=== PATIENT | male | born 1945 | race Caucasian/White ===

== ENCOUNTER 2016-06-23 16:45 | Inpatient (IN) | payer MEDICARE ==
[~2016-06-23] VITALS: Ht 182.9 cm; Wt 122.9 kg
[~2016-06-23 16:45] MED LIST: BAYER CHEWABLE81 MG PO; BETAPACE 80 MG80 MG PO; BRILINTA90 MG PO; CATAPRES0.2 MG PO; FLOMAX0.4 MG PO; GLUCOPHAGE500 MG PO; HYDROCODON-ACE1 EAC7 PO; HYDROCODONE-APA1 TAB PO; IPRAT-ALBUT 0.5-3 ML UPD; KLOR-CON 1010 MEQ PO; LASIX40 MG PO; LEVAQUIN500 MG PO; LYRICA75 MG PO; MIRALAX17 GM PO; NORVASC10 MG PO; PHENERGAN25 M1 PO; PLAVIX75 MG PO; PREDNISONE10 MG PO; PRINIVIL20 MG PO; PROTONIX40 MG PO; ULTRAM50 MG PO
--- NOTE | 2016-06-23 17:32 | NUR ---
22G IV STARTED TO LEFT FA WITH TWO STICKS, IV FLUIDS STARTED INFUSING, SCD;S ON BILAT, O2 SAT AT 2L. ZOFRAN GIVEN FOR C/O OF NAUSEA. PT DENIES ANY OTHER NEEDS AT THIS TIME. CALL LIGHT IN REACH, NAD NOTED, WILL CONTINUE TO MONITOR.
[2016-06-23 17:56] LABS: BASOPHILS 0.3 % (0.0-2.0); EOSINOPHILS 4.9 % (0-7); HEMATOCRIT 34.7 % (42.0-54.0); HEMOGLOBIN 11.9 g/dL (13.5-17.5); IMMATURE GRANULOCYTES 0.1 % (0-5); LYMPHOCYTES 27.7 % (15-50); MCH 28.7 pg (26.0-34.0); MCHC 34.3 g/dL (31.0-37.0); MCV 83.8 fL (80.0-100.0); MEAN PLATELET VOLUME 9.8 fL (7.4-10.4); MONOCYTES 16.8 % (2-11); NEUTROPHILS 50.2 % (40-80); PLATELET COUNT 228 10x3/uL (130-400); RBC 4.14 10x6/uL (4.20-6.10); RDW 13.1 % (11.5-14.5); WBC 7.2 10x3/uL (4.8-10.8)
[2016-06-23 18:00] VITALS: BP 127/77; BMI 36.8
[2016-06-23 18:09] VITALS: BP 127/77
[2016-06-23 18:28] LABS: ALBUMIN 3.9 g/dL (3.4-5.0); BILIRUBIN - TOTAL 1.36 mg/dL (0.2-1.3); CALCIUM 9.6 mg/dL (8.5-10.1); CREATININE - SERUM 1.4 mg/dL (0.6-1.3); POTASSIUM - SERUM 3.2 mmol/L (3.5-5.1); PROTEIN - SERUM 7.6 g/dL (6.4-8.2)
[2016-06-23 18:35] LABS: CARBON DIOXIDE 42.2 mmol/L (21.0-32.0)
[2016-06-23 19:45] VITALS: BP 122/66
[2016-06-24 02:05] VITALS: BP 120/71
--- NOTE | 2016-06-24 02:20 | NUR ---
LYING IN BED WITH CALL LIGHT IN REACH. WILL CONTINUE WITH PLAN OF CARE.
[2016-06-24 05:19] VITALS: BP 124/76
[2016-06-24 05:37] LABS: BASOPHILS 0.2 % (0.0-2.0); HEMATOCRIT 33.3 % (42.0-54.0); HEMOGLOBIN 11.7 g/dL (13.5-17.5); LYMPHOCYTES 28.6 % (15-50); MCH 29.5 pg (26.0-34.0); MCHC 35.1 g/dL (31.0-37.0); MCV 84.1 fL (80.0-100.0); MEAN PLATELET VOLUME 10.2 fL (7.4-10.4); MONOCYTES 12.5 % (2-11); NEUTROPHILS 54.7 % (40-80); PLATELET COUNT 210 10x3/uL (130-400); RBC 3.96 10x6/uL (4.20-6.10); WBC 5.5 10x3/uL (4.8-10.8)
[2016-06-24 06:18] LABS: ALBUMIN 3.5 g/dL (3.4-5.0); ANION GAP 5.5 mmol/L (8-16); BILIRUBIN - TOTAL 1.15 mg/dL (0.2-1.3); CALCIUM 9.5 mg/dL (8.5-10.1); CARBON DIOXIDE 39.8 mmol/L (21.0-32.0); CREATININE - SERUM 1.2 mg/dL (0.6-1.3); POTASSIUM - SERUM 3.3 mmol/L (3.5-5.1); PROTEIN - SERUM 7.4 g/dL (6.4-8.2)
--- NOTE | 2016-06-24 06:54 | NUR ---
RECEIVED REPORT FROM COOK HELPER FRUIT NURSE, SLOAN CURRIE. PT IN BED, STATES HE IS NOT FEELING WELL THIS AM. CALL LIGHT IN REACH, SCD'S ON BILAT, NAD NOTED, PT DENIES ANY NEEDS AT THIS TIME. WILL CONTINUE TO MONITOR.
[2016-06-24 08:50] VITALS: BP 156/46
--- NOTE | 2016-06-24 08:51 | NUR ---
ADMINISTERED MORNING MEDICATIONS, PT IN BED, DENIES ANY NEEDS AT THIS TIME. CALL LIGHT IN REACH, NAD NOTED, WILL CONTINUE TO MONITOR.
--- NOTE | 2016-06-24 09:44 | NUR ---
ADMINSITERED 4MG OF ZOFRAN FOR C/O OF NUASEA, PT STATES THAT HE ALSO WANTS SOMETHING TO HELP HIM SLEEP AT NIGHT. WILL CALL DR. DIA.
[2016-06-24 10:49] VITALS: Ht 182.9 cm; Wt 122.9 kg
[2016-06-24 12:27] VITALS: BP 120/68
--- NOTE | 2016-06-24 16:17 | NUR ---
Rehab Prescreening Consult recieved and the patient was visited. He meets criteria for IRF and agrees to participate in the program so he can return home and be as independent as possible. Called [facility] and spoke to Leanna mart preauthorization is not required for inpatient rehab. Ref # [id number]. He will be accepted tomorrow if the physician agrees. The [facility] has been made aware. Tiara Staples RN Clinical Liaison, Rehab
[2016-06-24 16:28] VITALS: BP 113/61
--- NOTE | 2016-06-24 17:49 | NUR ---
Patient Name: ANUP REZA Admission Status: Urgent Accout number: [id number] Admission Date: 06-23-2016 : 1945 Admission Diagnosis: Attending: IZABELLA Current LOS: 1 Anticipated DC Date: 06-25-2016 Planned Disposition: Inpatient Rehab Primary Insurance: [facility] Discharge Planning Comments: * Is the patient Alert and Oriented? Yes 0 * How many steps to enter\exit or inside your home? RAMP 0 * PCP DR. DIA 0 * Pharmacy [facility] [place] 0 * Preadmission Environment Home with Family 0 * ADLs Independent 0 * Equipment Cane Nebulizer Oxygen Rolling Walker 0 * Other Equipment NO MEDICAL EQUIPMENT PROVIDER PRERFERENCE 0 * List name and contact numbers for known caregivers / representatives who currently or will assist patient after discharge: TED REZA, SON, 0 * Community resources currently utilized Home Health 0 * Please name any agencies selected above. [facility] 0 * Additional services required to return to the preadmission environment? Yes * Can the patient safely return to the preadmission environment? Yes 0 * Has this patient been hospitalized within the prior 30 days at any hospital? Yes 0 CM MET WITH PT IN ROOM TO DISCUSS DISCHARGE PLANNING AND NEEDS. 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 PT REPORTS HAVING ALL NEEDED MEDICAL EQUIPMENT AND CANNOT REMEMBER THE NAME OF HIS MEDICAL EQUIPMENT PROVIDER. PT HAS HOME HEALTH WITH [facility]. CM DISCUSSED AVAILABILITY OF HOME HEALTH, REHAB SERVICES AND MEDICAL EQUIPMENT. PT WOULD LIKE INPATIENT REHAB AT [place] AND IF DECLINED, HE WOULD LIKE REHAB AT [facility]. IMPORTANT MESSAGE FROM MEDICARE PROVIDED AND EXPLAINED. CHOICE FOR [facility] SIGNED. KUSH JUAREZ SPOKE TO MARGARITA OF INPATIENT REHAB, THEY PLAN TO ACCEPT PT TOMORROW, , FOR REHAB. PT AND SON NOTIFIED, IN AGREEMENT WITH DISCHARGE TO INPATIENT REHAB. [facility] INPATIENT REHAB TO CONTACT [facility] 2 NURSE WITH ROOM NUMBER WHEN READY TO ACCEPT PT AND NURSE REPORT. Quality Improvement Analyst: Emmanuel Harrison
[2016-06-24 20:50] VITALS: BP 109/67
--- NOTE | 2016-06-24 21:14 | NUR ---
RESTING IN BED. AROUSES TO VOICE. ALERT ORIENTED CONVERSANT. DENIES NEEDS. NO ACUTE DISTRESS NOTED
[2016-06-25 02:50] VITALS: BP 113/72
--- NOTE | 2016-06-25 04:58 | NUR ---
CALL LIGHT IN REACH, WILL CONTINUE WITH PLAN OF CARE.
[2016-06-25 05:22] VITALS: BP 121/82
[2016-06-25 05:37] LABS: BASOPHILS 0.3 % (0.0-2.0); EOSINOPHILS 4.7 % (0-7); HEMATOCRIT 36.1 % (42.0-54.0); HEMOGLOBIN 11.9 g/dL (13.5-17.5); IMMATURE GRANULOCYTES 0.3 % (0-5); LYMPHOCYTES 22.9 % (15-50); MCH 28.6 pg (26.0-34.0); MEAN PLATELET VOLUME 10.5 fL (7.4-10.4); MONOCYTES 16.1 % (2-11); NEUTROPHILS 55.7 % (40-80); RBC 4.16 10x6/uL (4.20-6.10); RDW 13.3 % (11.5-14.5); WBC 6.3 10x3/uL (4.8-10.8)
[2016-06-25 05:52] LABS: ALBUMIN 3.7 g/dL (3.4-5.0); ANION GAP 7.6 mmol/L (8-16); BILIRUBIN - TOTAL 1.12 mg/dL (0.2-1.3); CALCIUM 9.8 mg/dL (8.5-10.1); CARBON DIOXIDE 39.6 mmol/L (21.0-32.0); CREATININE - SERUM 1.3 mg/dL (0.6-1.3); MCV 86.8 fL (80.0-100.0); PLATELET COUNT 255 10x3/uL (130-400); POTASSIUM - SERUM 3.2 mmol/L (3.5-5.1); PROTEIN - SERUM 7.8 g/dL (6.4-8.2)
--- NOTE | 2016-06-25 07:42 | NUR ---
received pt report no other needs at this time. will continue plan of care. will continue to monitor.
[2016-06-25 08:00] VITALS: BP 145/76
--- NOTE | 2016-06-25 10:49 | NUR ---
PT IS ALERT. ASSESSMENT DONE PER FLOWSHEET. NO OTHER NEEDS AT THIS TIME. WILL CONTINUE TO MONITOR.
[2016-06-25 12:19] VITALS: BP 96/51
--- NOTE | 2016-06-25 12:53 | NUR ---
Patient Name: ANUP REZA Encounter No: [id number] : 1945 Primary Insurance: [facility] [employer] [facility] P[facility] Anticipated DC Date: 06-25-2016 Planned Disposition: Inpatient Rehab External Planned Provider: [facility] DCP follow-up note: CM RECEIVED CALL FROM MARGARITA OF [facility] INPATIENT [facility]AB, DR. DIA IS NOT DISCHARGING PT TODAY, THERE IS CONCERN THAT PT WILL BE FUNCTIONING AT TOO HIGH LEVEL TO MEET CRITERIA FOR INPATIENT REHAB, INPATIENT REHAB TO CONTINUE TO FOLLOW. CM SPOKE TO PT IN ROOM, PT ASKED THAT IF HE IS NOT ACCEPTED FOR REHAB AND CAN GO HOME, HE WILL RETURN HOME WITH RESUMPTION OF HOME HEALTH; PT ASKED THAT CM FAX HIS INFORMATION TO [facility] FOR EVALUATION IN CASE HE NEEDS THEM AT DISCHARGE. PT CHOICE WAS PREVIOUSLY SIGNED. CM FAXED REHAB REFERRAL TO [facility], AT [phone]. CM WAITING MEDICAL STABILITY FOR DISCHARGE; CM WILL FOLLOW UP WITH INPATIENT REHAB AT THAT TIME TO DETERMINE IF PT QUALIFIES FOR INPATIENT REHAB. CM WAITING ADMISSION DETERMIMATION FROM [facility]. Emmanuel Harrison, CASE MANAGEMENT
--- NOTE | 2016-06-25 13:19 | NUR ---
NO SS OF DISTRESS WILL CONTINUE TO MONITOR. NO OTHER NEEDS AT THIS TIME. WILL CONTINUE TO MONITOR.
--- NOTE | 2016-06-25 14:35 | NUR ---
Patient Name: ANUP REZA Encounter No: [id number] : 1945 Primary Insurance: [facility] [employer] [facility] Anticipated DC Date: 06-25-2016 Planned Disposition: Inpatient Rehab External Planned Provider: [facility] INPATIENT REHAB DCP follow-up note: KUSH JUAREZ SPOKE TO DR. DIA WHO IS DISCHARGING PT TO INPATIENT REHAB AND MARGARITA OF INPATIENT REHAB, THEY PLAN TO ACCEPT PT TODAY FOR IN PATIENT REHAB. PT AND SON NOTIFIED, IN AGREEMENT WITH DISCHARGE TO INPATIENT REHAB AT [place]. CM SPOKE TO OSCAR, CLINICAL LIAISON FOR [facility] REFERRAL. [facility] INPATIENT REHAB TO CONTACT MED 2 NURSE WITH ROOM NUMBER WHEN READY TO ACCEPT PT AND NURSE REPORT. Separator Operator [employer]: Emmanuel Harrison
[2016-06-25 16:00] VITALS: BP 103/53
--- NOTE | 2016-06-25 18:10 | NUR ---
PT DC TO REHAB... NO OTHER NEEDS AT THIS TIME. WILL CONTINUE TO MONTIOR.
== END 2016-06-25 18:10 | DRG 641 ==
LOC: D.M2 16:45
PROVIDERS: ADMIT Family Medicine
DX: E87.1 Hypo-osmolality and hyponatremia (principal); J81.1 Chronic pulmonary edema; I50.22 Chronic systolic (congestive) heart failure; R19.7 Diarrhea, unspecified; E86.0 Dehydration; I48.91 Unspecified atrial fibrillation; I25.10 Atherosclerotic heart disease of native coronary artery without angina pectoris; J44.9 Chronic obstructive pulmonary disease, unspecified; E78.1 Pure hyperglyceridemia; E87.6 Hypokalemia; I11.0 Hypertensive heart disease with heart failure

== ENCOUNTER 2016-06-25 18:05 | Inpatient (IN) | payer MEDICARE ==
[~2016-06-25] VITALS: Ht 182.9 cm; Wt 122.5 kg
--- NOTE | 2016-06-25 19:33 | NUR ---
PT REPORTEDLY ARRIVED TO UNIT AT 1805. PT IS A&OX4. PT UNDERSTANDS USE OF CALL LIGHT/TV REMOTE AND TO CALL NURSE FOR ANY ASSISTANCE. PT HAS URINAL AT BEDSIDE AND STATES UNDERSTANDING OF USE. PT DENIES NEEDS AT THIS TIME. BED LOW. CL IN REACH. WCTM.
[2016-06-25 19:59] VITALS: BP 112/48; BMI 36.7
--- NOTE | 2016-06-25 21:25 | NUR ---
PT TOOK HS MEDS WITHOUT DIFFICULYT AND DENIES FURTHUR NEEDS. WCTM. BED LOW. CLIN REACH. J
[2016-06-25 21:37] VITALS: BP 122/60
--- NOTE | 2016-06-26 00:15 | NUR ---
PT RESTING, EYES CLOSED. BED LOW. CLI N REACH. WCTM.
--- NOTE | 2016-06-26 00:25 | NUR ---
PT RESTING, EYES CLOSED. BED LOW. CLIN REACH. WCTM.
[2016-06-26 07:00] VITALS: BP 113/60
--- NOTE | 2016-06-26 08:12 | NUR ---
SITTING ON SIDE OF BED EATING BREAKFAST. DENIES PAIN. USES WALKER AND URINAL
[2016-06-26 09:01] LABS: BASOPHILS 0.6 % (0.0-2.0); EOSINOPHILS 6.1 % (0-7); HEMATOCRIT 36.9 % (42.0-54.0); HEMOGLOBIN 12.4 g/dL (13.5-17.5); IMMATURE GRANULOCYTES 0.2 % (0-5); LYMPHOCYTES 26.1 % (15-50); MCH 28.8 pg (26.0-34.0); MCHC 33.6 g/dL (31.0-37.0); MCV 85.8 fL (80.0-100.0); MEAN PLATELET VOLUME 10.3 fL (7.4-10.4); MONOCYTES 13.3 % (2-11); NEUTROPHILS 53.7 % (40-80); PLATELET COUNT 251 10x3/uL (130-400); RDW 13.4 % (11.5-14.5); WBC 6.4 10x3/uL (4.8-10.8)
[2016-06-26 09:08] LABS: ANION GAP 8.8 mmol/L (8-16); CALCIUM 9.9 mg/dL (8.5-10.1); CARBON DIOXIDE 37.4 mmol/L (21.0-32.0); CREATININE - SERUM 1.4 mg/dL (0.6-1.3); POTASSIUM - SERUM 3.2 mmol/L (3.5-5.1)
[2016-06-26 10:13] VITALS: Ht 182.9 cm; Wt 122.5 kg
--- NOTE | 2016-06-26 12:19 | NUR ---
SITTING UP EATING LUNCH. DENIES NEEDS. CALL LIGHT IN REACH
--- NOTE | 2016-06-26 13:19 | NUR ---
RESTING QUIETLY IN BED. EYES CLOSED
[2016-06-26 19:30] VITALS: BP 105/59
--- NOTE | 2016-06-26 19:40 | NUR ---
PT SITTING UP ON SIDE OF BED, FAMILY AT BEDSIDE. PT DENIES NEEDS AT THIS TIME. BED LOW. CL IN REACH.
--- NOTE | 2016-06-26 20:25 | NUR ---
PT HS MEDS GIVEN. PT DENIES NEEDS AT THIS TIME. BED LOW. CL IN REACH.
--- NOTE | 2016-06-26 23:00 | NUR ---
PT RESTING, EYES CLOSED. BED LOW. CLIN REACH.
--- NOTE | 2016-06-27 00:32 | NUR ---
PT RESTING, EYES CLSOED. BED LOW. CL INR EACH.
--- NOTE | 2016-06-27 03:00 | NUR ---
PT RESTING, EYES CLOSED. BED LOW. CL IN REACH.
--- NOTE | 2016-06-27 06:03 | NUR ---
PT AM MEDS GIVEN. PT DENIES NEEDS AT THIS TIME. BED LOW. CL IN REACH.
[2016-06-27 07:00] VITALS: BP 114/67
--- NOTE | 2016-06-27 08:15 | NUR ---
PT RESTING IN BED WITH EYES OPEN CALL LIGHT IN REACH NO PROBLEMS WILL MONITER
--- NOTE | 2016-06-27 13:55 | NUR ---
PT RESTING IN BED WITH EYES OPEN CALL LIGHT IN REACH NO PROBLEMS WILL MONITER
--- NOTE | 2016-06-27 14:45 | NUR ---
Pt. is stable this shift. No signs of any discomfort or distress. Call light in reach. No voiced complaints of anykind. Will continue to observe throughout this shift.
--- NOTE | 2016-06-27 17:55 | NUR ---
PT RESTING IN BED WITH EYES OPEN CALL LIGHT IN REACH NO PROBLEMS WILL MONITER
--- NOTE | 2016-06-27 20:15 | NUR ---
PT IS SITTING ON THE SIDE OF HIS BED VISITING WITH FAMILY MEMBERS. ALERT AND ORIENTED X 3. DENIES ACUTE DISCOMFORT AT THIS TIME. PT STATES: " I GOT A REALLY GOOD WORKOUT TODAY, AND IM WORN OUT. I DONT THINK I COULD DO THAT AGAIN RIGHT NOW." VSS. O2 IS ON @ 2LPM PER NC. NO SOB NOTED. SR'S ARE UP X 2 IN BED. CALL LIGHT AND BEDSIDE TABLE ARE WITHIN EASY REACH.
[2016-06-27 22:05] VITALS: BP 135/63
--- NOTE | 2016-06-27 22:14 | NUR ---
RESTING QUIETLY IN BED WITH EYES CLOSED. RESPS ARE EVEN AND UNLABORED. NO ACUTE DISTRESS NOTED.
--- NOTE | 2016-06-28 01:00 | NUR ---
PT IS RESTING QUIETLY IN BED WITH EYES CLOSED. RESPS ARE EVEN AND UNLABORED. NO ACUTE DISTRESS NOTED.
--- NOTE | 2016-06-28 04:04 | NUR ---
PT RESTING IN BED WITH EYES CLOSED.
--- NOTE | 2016-06-28 05:33 | NUR ---
PT AWAKE WATCHING TV, SMILES AND CONVERSES, NO S/S OF ACUTE DISTRESS.
--- NOTE | 2016-06-28 06:45 | NUR ---
RESTING QUIETLY IN BED. CALL LIGHT IN REACH
--- NOTE | 2016-06-28 08:15 | NUR ---
PT RESTING IN BED WITH EYES OPEN CALL LIGHT IN REACH NO PROBLEMS WILL MONITER
[2016-06-28 09:05] VITALS: BP 108/51
[2016-06-28 11:26] LABS: ANION GAP 8.3 mmol/L (8-16); CALCIUM 9.2 mg/dL (8.5-10.1); CARBON DIOXIDE 34.9 mmol/L (21.0-32.0); CREATININE - SERUM 1.3 mg/dL (0.6-1.3); POTASSIUM - SERUM 3.2 mmol/L (3.5-5.1)
--- NOTE | 2016-06-28 13:57 | RHP ---
PATIENT: ANUP REZA MEDICAL RECORD: [id number] ACCOUNT: [id number] LOCATION:[id number] : [birth year] ADMISSION DATE: 06/25/16 REHABILITATION HISTORY AND PHYSICAL EXAMINATION POST ADMISSION PHYSICIAN EXAMINATION Post-admission Physical Exam and History and Physical DATE OF ADMISSION: 06/25/2016 ADMITTING DIAGNOSES: Vcsyg-wp-dautlqy congestive heart failure, gvtsp-uv-sjrulhf respiratory failure with hypercapnia, and aortic valve stenosis. HISTORY OF PRESENT ILLNESS: The patient is a 70-year-old gentleman with a history of coronary artery disease as well as carotid artery stenosis. He has a history of frequent admissions usually associated volume overload. He was admitted on June 23 from the physician's office with complaints of nausea and vomiting for past several days, not eating well, having some diarrhea, weakness, unable to walk forward without resting, very weak, unsteady gait, not feeling well, and was getting worse. Nephrology was consulted for the following assessment, he had hyponatremic hypoosmolar problems, lower extremity edema with a difficulty volume situation and third space edema. He was needing medication for the nausea and vomiting. Prior to admission, he lives with his spouse and is primary caregiver. She is on hospice. He is moderately independent with ADLs and mobility using cannula, wore O2 at 2 liters via nasal cannula. Currently, he is on a continuous O2 at 2-3 liters to maintain his sats 92% or above. He is moderate to max assist for ADLs and mobility. He has an unsteady gait and tires easily. COMORBIDITIES: Include chronic kidney disease, hypertensive kidney disease, secondary pulmonary hypertension, fatigue, weakness, coronary artery disease, atrial fibrillation, neuropathy, COPD, nausea and vomiting, hyponatremia, dehydration, abdominal pain, obstructive sleep apnea, gastroesophageal reflux disease. PAST MEDICAL HISTORY: Significant for frequent admissions, chronic kidney disease, hypertension, atrial fibrillation, coronary artery disease, neuropathy, COPD, and electrolyte abnormalities. PAST SURGICAL HISTORY: Includes PTCA with stent, tonsillectomy, adenoidectomy, gallbladder surgery, left ankle and left hip surgery. ALLERGIES: AMOXICILLIN. CURRENT MEDICATIONS: Include Flomax 0.4 mg daily. He is on MiraLax 17 grams daily, Protonix 40 mg daily, lisinopril 40 mg daily, furosemide 40 mg b.i.d., aspirin chewable 81 mg daily, amlodipine 10 mg daily, sotalol 80 mg b.i.d., Lyrica 75 mg b.i.d., potassium 10 mEq b.i.d., DuoNeb updrafts, and polyethylene glycol. HABITS: No current alcohol or tobacco use. FAMILY HISTORY: Noncontributory. HISTORY AND PHYSICAL [id number] ANUP REZA SR SOCIAL HISTORY: The patient hopes to return back home and get back to his prior level of function. REVIEW OF SYSTEMS: GENERAL: Does complain of weakness. HEENT: Denies cold, cough, or congestion. CARDIOVASCULAR: Denies any chest pain. LUNGS: Does complain of occasional shortness of breath. PHYSICAL EXAMINATION: VITAL SIGNS: Stable, afebrile. GENERAL: Morbidly obese gentleman in no acute distress, alert upon exam. HEENT: Normocephalic and atraumatic. Mucosa moist. NECK: Supple. No lymphadenopathy. LUNGS: Have decreased breath sounds bilaterally. CARDIOVASCULAR: Irregular rate and rhythm. ABDOMEN: Benign. EXTREMITIES: No clubbing, cyanosis or edema. NEUROLOGIC: Intact. LABORATORY DATA: His white count is 6.4, H&H of 12 and 37, and platelet count is noted to be 251. His sodium is 132, potassium 3.2, BUN and creatinine 24 and 1.4 and blood sugar was noted to be 115. ASSESSMENT: This is a 70-year-old gentleman admitted to the rehab with a working diagnosis of congestive heart failure induced myopathy complicated by aortic valve stenosis. The patient has potential to make improvement. We instituted the following multidisciplinary therapies including to, but not limited to physical, occupational, respiratory, speech, nutritional services, prosthetics and orthotics. Given his complex condition and risk for more complications, rehabilitation services cannot be provided at a low level of care such as a penitentiary facility. PLAN: 1. Admit to [facility] rehab for intensive inpatient therapy to include the following disciplines: A. Physical therapy to improve gait, all transfer skills and bed mobility to a modified independent level. B. Occupational therapy to improve activities of daily living to a modified independent level. C. Case management to assist with discharge planning and placement options. D. Nutrition to assist in nutritional needs. E. Rehabilitation nursing to assist and monitor the patient underlying medical conditions and to assist with any type of bowel or bladder management. 2. The patient's current medication and medical care will be continued. 3. The patient will be placed on standard fall precautions. 4. The patient's estimated length of stay is approximately 7-10 days. 5. Discuss this patient during care team staff meeting this week. TRANSINT:[id number] Voice Confirmation ID: [id number] DOCUMENT ID: [id number] HISTORY AND PHYSICAL [id number] ANUP REZA SR, SCOTT MD at 1357 CC: [id number] DICTATION DATE: 06/26/16 1224 CONCRETE STONE FINISHER: 06/26/16 1249 ADM IN [place] [id number] [place] [id number]
--- NOTE | 2016-06-28 14:02 | NUR ---
PT RESTING IN BED WITH EYES OPEN CALL LIGHT IN REACH NO PROBLEMS WILL MONITER
[2016-06-28 20:00] VITALS: BP 132/62
--- NOTE | 2016-06-29 01:59 | NUR ---
RECIEVED PATIENT IN PATIENT ROOM, REPORT GIVEN BY DAY SHIFT NURSE, ALERT AND ORIENTED X 4, CONT. B/B, UP ADLIB, NO ACUTE DISTRESS NOTED OR VOICED BY PATIENT.
--- NOTE | 2016-06-29 03:14 | NUR ---
pATIENT RESTING QUIETLY IN BED EYES CLOSED, NO ACUTE DISTRESS NOTED , WILL CONTINUE TO MONITOR.
--- NOTE | 2016-06-29 08:20 | NUR ---
PT IN BED WATCHING TV. CALL LIGHT IN REACH.
[2016-06-29 08:39] VITALS: BP 103/58
--- NOTE | 2016-06-29 14:17 | NUR ---
Nutrition Follow Up: Chart reviewed. Pt is eating 82% of AHA diet. Wt stable. No BM since admit. Labs noted - Na, K+ low. Meds: KDUR, Lasix, Zofran. Rec continue current diet. RD following.
--- NOTE | 2016-06-29 18:19 | NUR ---
PT SETTING ON SIDE OF BED TALKING WITH VISITOR. CALL LIGHT IN REACH.
--- NOTE | 2016-06-29 18:55 | NUR ---
INTRODUCED SELF TO PT, ASSISTED PT WITH SHOWER WITH MINIMAL ASSISTANCE, PT STATES NO NEEDS AT THIS TIME, WILL CONTINUE TO MONITOR, CALL LIGHT WITHIN REACH.
[2016-06-29 19:55] VITALS: BP 140/74
--- NOTE | 2016-06-29 21:47 | NUR ---
NIGHT MEDICATION GIVEN, PT TOLERATED WELL, WILL CONTINUE TO MONITOR, CALL LIGHT WITHIN REACH.
--- NOTE | 2016-06-29 23:29 | NUR ---
PT RESTING QUIETLY, RESPIRATIONS EVEN, BED IN LOW POSITION, SIDE RAILS UP X'S 2, CALL LIGHT WITHIN REACH.
--- NOTE | 2016-06-30 00:49 | NUR ---
PT RESTING QUIETLY, RESPIRATIONS EVEN, WILL CONTINUE TO MONITOR, CALL LIGHT WITHIN REACH.
--- NOTE | 2016-06-30 02:15 | NUR ---
IN BED, EYES CLOSED. APPEARS COMFORTABLE.
--- NOTE | 2016-06-30 04:24 | NUR ---
PT RESTING QUIETLY, RESPIRATIONS EVEN, WILL CONTINUE TO MONITOR, CALL LIGHT WITHIN REACH.
--- NOTE | 2016-06-30 06:16 | NUR ---
PT STATES THAT HE SLEPT VERY LITTLE DURING THE NIGHT, DUE TO ROOMMATE WALKING AROUND AND MAKING LOUD NOISES WITH THE WHEELCHAIR. PT STATES IF HE OR THE ROOMMATE IS NOT MOVED TODAY HE IS GOING TO CALL HIS SON AND GO HOME. INFORMED CHARGE NURSE JEANNA OF PTS REQUEST. WILL CONTINUE TO MONITOR, CALL LIGHT WITHIN REACH.
--- NOTE | 2016-06-30 06:23 | NUR ---
MORNING MEDICATION GIVEN, PT TOLERATED WELL, WILL CONTINUE TO MONITOR, CALL LIGHT WITHIN REACH.
[2016-06-30 06:48] LABS: BASOPHILS 0.4 % (0.0-2.0); EOSINOPHILS 6.6 % (0-7); HEMATOCRIT 33.9 % (42.0-54.0); HEMOGLOBIN 11.4 g/dL (13.5-17.5); IMMATURE GRANULOCYTES 0.2 % (0-5); LYMPHOCYTES 30.5 % (15-50); MCH 28.7 pg (26.0-34.0); MCHC 33.6 g/dL (31.0-37.0); MCV 85.4 fL (80.0-100.0); MONOCYTES 12.1 % (2-11); NEUTROPHILS 50.2 % (40-80); PLATELET COUNT 211 10x3/uL (130-400); RBC 3.97 10x6/uL (4.20-6.10); RDW 13.2 % (11.5-14.5); WBC 5.6 10x3/uL (4.8-10.8)
--- NOTE | 2016-06-30 07:00 | NUR ---
Received pt. at the beginning of this shift. In bed awake and oriented x 3. Pt. is independent with his adl's. Pt. has been moved to a private room and is happy about it. Denies any pain or discomfort. Vital signs: Temp. 98.1, pulse 61, resp. 16, b/p 118/67, 02Sat. 98%. Pt. ambulates well with a walker with stand by assist. Will be monitoring pt. throughout this shift and assisting prn.
[2016-06-30 07:04] LABS: ANION GAP 8.5 mmol/L (8-16); CALCIUM 8.8 mg/dL (8.5-10.1); CARBON DIOXIDE 35.6 mmol/L (21.0-32.0); CREATININE - SERUM 1.3 mg/dL (0.6-1.3); POTASSIUM - SERUM 4.1 mmol/L (3.5-5.1)
[2016-06-30 08:30] VITALS: BP 118/67
--- NOTE | 2016-06-30 16:49 | NUR ---
CARE TEAM MEETING: PATIENT TENATIVE DISCHARGE DATE IS 07/06/16. PATIENT HAS NEBULIZER , O2 AND WALKER AT HOME. PATIENT HAS USSED [facility] FOR HOME HEALTH. PCP IS DR. DIA. WILL CONTINUE TO FOLLOW WITH PATIENT UNTIL DISCHARGED.
--- NOTE | 2016-06-30 18:43 | NUR ---
Pt had an uneventful day today. He was moved to room 1116. No signs of any discomfort or distress found. Call light is in reach.
--- NOTE | 2016-06-30 20:53 | NUR ---
RESTING IN BED. ALERT ORIENTED CONVERSANT. PT ASSISTED TO SHOWER. DENIES FURTHER NEEDS. NO ACUTE DISTRESS NOTED.
--- NOTE | 2016-06-30 21:39 | NUR ---
PT BACK IN BED.
[2016-06-30 23:00] VITALS: BP 116/60
--- NOTE | 2016-07-01 01:20 | NUR ---
RESTING IN BED EYES CLOSED RESPIRATIONS OBSERVED. EVEN AND UNLABORED.
--- NOTE | 2016-07-01 02:25 | NUR ---
RESTING IN BED ON LEFT SIDE, EYES CLOSED. NO DISTRESS NOTED.
--- NOTE | 2016-07-01 07:57 | NUR ---
PATIENT ALERT/ORIENT X4. SITTING UP AT BEDSIDE TO EAT BREAKFAST. CALL LIGHT WITHIN REACH. VOICES NO NEEDS
--- NOTE | 2016-07-01 08:20 | NUR ---
PATIENT REFUSED MIRALAX, STATED THAT HE HAS HAD A FEW LOOSE BOWEL MOVEMENTS
[2016-07-01 09:33] VITALS: BP 153/95
--- NOTE | 2016-07-01 11:35 | NUR ---
PATIENT IN REHAB ROOM. WORKING WITH PHYSICAL THERAPIST. DENIES ANY PAIN/DISC AT THIS TIME
--- NOTE | 2016-07-01 12:24 | NUR ---
PATIENT SITTING UP IN A WHEELCHAIR BY BEDSIDE EATTING LUNCH. VOICES NO NEEDS AT THIS TIME
--- NOTE | 2016-07-01 14:19 | NUR ---
PATIENT ALBE TO WALK BE SELF FROM BED TO BATHROOM WITHOUT HELP. GAIT STEADY
--- NOTE | 2016-07-01 16:26 | NUR ---
IN THERAPY.TR WELL.DENIES NEEDS.
[2016-07-01 19:00] VITALS: BP 117/60
--- NOTE | 2016-07-01 19:56 | NUR ---
PT STATES HE IS HAVING LOOSE STOOLS AND BURNING WHEN HE URINATES. WILL NOTIFY DOCTOR. FAMILY AT BEDSIDE. WCTM. BED LOW. CL INR EACH.
--- NOTE | 2016-07-01 21:57 | NUR ---
PT RESTING, EYES CLOSED. BED LOW. CL INR EACH. WCTM.
--- NOTE | 2016-07-02 04:13 | NUR ---
PT RESTING, EYES CLOSED. BED LOW. CL IN REACH. WCTM.
[2016-07-02] MEDS ORDERED: ZESTRIL40 MG PO (09:01)
[2016-07-02] MEDS ORDERED: K-DUR20 MEQ PO (09:01)
[2016-07-02 10:28] VITALS: BP 129/72
--- NOTE | 2016-07-02 10:47 | NUR ---
PATIENT DISCHARGING HOME TODAY WITH FAMILY. [facility] WILL RESUME CARE OF PATIENT WITH PT, OT. PATIENT HAS O2, NEBULIZER AND WALKER, NO NEW DME NEEDED AT THIS TIME. DR. DIA 07/09/16 @ 2:30. PATIENT CHOICE FORM FOR HOME HEALTH AND IMFM FORM SIGNED, EXPLAINED AND FILED IN [facility]. ORDERS HAVE BEEN FAXED WITH CONFORMATION RECIEVED
--- NOTE | 2016-07-02 13:00 | NUR ---
PT D/C HOME. ALL PERSONAL BELONGINGS SENT WITH PT. TISH CALLED INTO [facility]
--- NOTE | 2016-08-09 07:26 | DS ---
PATIENT:ANUP REZA :41 MEDICAL RECORD: [id number] DISCHARGE SUMMARY ADMISSION DATE: 06/25/16 DISCHARGE DATE: 07/02/16 This is a discharge from inpatient rehab dated 07/02/2016. PRIMARY DIAGNOSES: Decreased functional ability and ability to provide activities of daily living secondary to pmxje-sa-ptipcrj congestive heart failure with jzcyq-ed-zxihwdo respiratory failure with hypercapnia and aortic valve stenosis. SECONDARY DIAGNOSES: 1. Coronary artery disease. 2. Carotid artery stenosis. 3. Atrial fibrillation. 4. Neuropathy. 5. Hypertension. 6. Hypokalemia. 7. Chronic obstructive pulmonary disease. 8. Hyponatremia. 9. Gastroesophageal reflux disease. 10. Obstructive sleep apnea. 11. Constipation. 12. Pneumonia. 13. Sepsis. 14. Edema. 15. Anemia. HOSPITAL COURSE: Full H&P is located elsewhere on the chart on this 70-year-old male who was admitted to inpatient rehab for physical therapy and occupational therapy to improve gait, transfer skills, bed mobility, and activities of daily living to a modified independent level. He was evaluated by PT and OT and their plans of care were followed. He required care home care for observation and assessment and medication administration. He was seen by speech therapy as well. He received nebulized medications for respiratory support as well as supplemental oxygen to keep sats above 90. He was cooperative with therapies, progressing towards goals. Case management was involved for discharge planning. He was considered stable for discharge on 07/02/2016. DISCHARGE MEDICATIONS: As per discharge medication reconciliation. DISCHARGE DISPOSITION: The patient is discharged home. He will continue his current diet and level of activity. He will have home health for OT, PT and care home care. He will follow up with primary care in 7-10 days. TRANSINT:[id number] Voice Confirmation ID: [id number] DOCUMENT ID: [id number] Dictated By: PETER CHAWLA I have interviewed/examined the above patient and agree with these documented findings. DISCHARGE SUMMARY REPORT [id number] JUAQUINTAM SNIDER SR, MD at 0726 at 0726 CC: [id number] DICTATION DATE: 08/08/16 1338 BLOCK ENGRAVER: 08/08/16 1430 DIS IN 07/02/16 [facility] [address] [place] [address]
== END 2016-07-02 13:00 | disposition home health service (06) | DRG 291 ==
LOC: D.REHAB 18:05
PROVIDERS: ADMIT Emergency Medicine
DX: I13.0 Hypertensive heart and chronic kidney disease with heart failure and stage 1 through stage 4 chronic kidney disease, or unspecified chronic kidney disease (principal); J96.22 Acute and chronic respiratory failure with hypercapnia; E87.1 Hypo-osmolality and hyponatremia; I35.0 Nonrheumatic aortic (valve) stenosis; N18.3 Chronic kidney disease, stage 3 (moderate); R53.1 Weakness; R53.83 Other fatigue; I25.10 Atherosclerotic heart disease of native coronary artery without angina pectoris; I48.91 Unspecified atrial fibrillation; G62.9 Polyneuropathy, unspecified; I27.2 Other secondary pulmonary hypertension; J44.9 Chronic obstructive pulmonary disease, unspecified; R11.2 Nausea with vomiting, unspecified; E86.0 Dehydration; G47.33 Obstructive sleep apnea (adult) (pediatric); K21.9 Gastro-esophageal reflux disease without esophagitis

== ENCOUNTER → 2016-09-16 11:32 | Outpatient (CLI) | payer MEDICARE ==
[2016-06-26 10:13] VITALS: BMI 36.6
[~2016-09-16 11:32] MED LIST changes: +K-DUR20 MEQ PO; +ZESTRIL40 MG PO
== END | disposition home or self-care (01) ==
LOC: D.RAD 11:32
DX: R07.81 Pleurodynia (principal)

== ENCOUNTER 2016-09-19 09:34 | Emergency (ER) | payer MEDICARE ==
[2016-09-19 10:33] LABS: ALBUMIN 3.4 g/dL (3.4-5.0); ALKALINE PHOSPHATASE 106 U/L (46-116); ALT (SGPT) 20 U/L (10-68); BILIRUBIN - TOTAL 0.77 mg/dL (0.2-1.3); CALC OSMOLALITY 271 mosm/kg (275-300); CALCIUM 9.1 mg/dL (8.5-10.1); CHLORIDE - SERUM 90 mmol/L (98-107); CREATININE - SERUM 1.3 mg/dL (0.6-1.3); GLUCOSE 124 mg/dL (74-106); PROTEIN - SERUM 7.7 g/dL (6.4-8.2); SODIUM 134 mmol/L (136-145); UREA NITROGEN 21 mg/dL (7-18); eGFR NON AFRICAN AMERICAN 58 mL/min (90-120)
[2016-09-19 10:53] LABS: CREATINE KINASE 392 UL (21-232); PRO BNP 562 pg/mL (0-125)
[2016-09-19 10:54] LABS: CKMB 1.8 U/L (0.0-3.6)
[2016-09-19 11:07] LABS: BASOPHILS 0.5 % (0.0-2.0); HEMATOCRIT 35.7 % (42.0-54.0); HEMOGLOBIN 11.5 g/dL (13.5-17.5); LYMPHOCYTES 26.4 % (15-50); MCH 29.2 pg (26.0-34.0); MCHC 32.2 g/dL (31.0-37.0); MCV 90.6 fL (80.0-100.0); MEAN PLATELET VOLUME 10.6 fL (7.4-10.4); MONOCYTES 11.5 % (2-11); NEUTROPHILS 52.6 % (40-80); PLATELET COUNT 179 10x3/uL (130-400); RBC 3.94 10x6/uL (4.20-6.10); RDW 13.7 % (11.5-14.5); WBC 6.1 10x3/uL (4.8-10.8)
== END 2016-09-19 12:34 | disposition home or self-care (01) ==
LOC: D.ER 09:34
PROVIDERS: Emergency Medicine
DX: R60.9 Edema, unspecified (principal); I50.9 Heart failure, unspecified; J44.9 Chronic obstructive pulmonary disease, unspecified; E11.9 Type 2 diabetes mellitus without complications; R06.89 Other abnormalities of breathing; E87.6 Hypokalemia; I12.9 Hypertensive chronic kidney disease with stage 1 through stage 4 chronic kidney disease, or unspecified chronic kidney disease; N18.9 Chronic kidney disease, unspecified

== ENCOUNTER 2016-12-02 22:06 | Inpatient (IN) | payer MEDICARE ==
[~2016-12-02] VITALS: Ht 182.9 cm; Wt 131.5 kg
[2016-12-02 23:24] LABS: BASOPHILS 0.3 % (0-2); EOSINOPHILS 6.3 % (0-7); HEMATOCRIT 36.3 % (42.0-54.0); IMMATURE GRANULOCYTES 0.1 % (0-5); LYMPHOCYTES 30.4 % (15-50); MCH 29.7 pg (26.0-34.0); MCHC 33.1 g/dL (31.0-37.0); MCV 89.9 fL (80.0-100.0); MONOCYTES 9.4 % (2-11); NEUTROPHILS 53.5 % (40-80); PLATELET COUNT 189 10x3/uL (130-400); RBC 4.04 10x6/uL (4.20-6.10); RDW 13.4 % (11.5-14.5); WBC 6.8 10x3/uL (4.8-10.8)
[2016-12-02 23:38] LABS: ALBUMIN 3.4 g/dL (3.4-5.0); ALKALINE PHOSPHATASE 127 U/L (46-116); ALT (SGPT) 20 U/L (10-68); BILIRUBIN - TOTAL 1.11 mg/dL (0.2-1.3); CALC OSMOLALITY 272 mosm/kg (275-300); CALCIUM 9.9 mg/dL (8.5-10.1); CARBON DIOXIDE 39.7 mmol/L (21.0-32.0); CHLORIDE - SERUM 92 mmol/L (98-107); CREATININE - SERUM 1.5 mg/dL (0.6-1.3); GLUCOSE 130 mg/dL (74-106); POTASSIUM - SERUM 3.1 mmol/L (3.5-5.1); PROTEIN - SERUM 7.9 g/dL (6.4-8.2); SODIUM 134 mmol/L (136-145); UREA NITROGEN 20 mg/dL (7-18); eGFR NON AFRICAN AMERICAN 49 mL/min (90-120)
[2016-12-02 23:45] LABS: CREATINE KINASE 138 UL (21-232); PRO BNP 385 pg/mL (0-125); TROPONIN-I < 0.017 ng/mL (0.000-0.060)
--- NOTE | 2016-12-03 01:02 | NUR ---
CALL LIGHT IN REACH, WILL CONTINUE WITH PLAN OF CARE.
[2016-12-03] MEDS ORDERED: VALIUM 2 MG TAB2 MG PO (02:03)
[2016-12-03] MEDS ORDERED: HYDROCODONE-APA1 TAB PO (02:04)
[2016-12-03] MEDS ORDERED: LIPITOR40 MG PO (02:05)
[2016-12-03 04:00] VITALS: BP 117/55
--- NOTE | 2016-12-03 07:30 | NUR ---
AM ROUNDS- PT IN BED WITH EYES CLOSED, BED IN LOW AND LOCKED, BEDSIDE RAILS X2. CALL LIGHT IN REACH, NAD NOTED, WILL CONTINUE TO MONITOR.
[2016-12-03 08:00] VITALS: BP 138/58
--- NOTE | 2016-12-03 08:31 | NUR ---
ADMINISTERED AM MEDS. AND 40MEQ OF K FOR LOW K OF 3.1. PT IN BED, STATES THAT HE WANTS LINEN CHANGE, WILL LET ROUTE SALESMAN AND DRIVER KNOW. PT DENIES ANY OTHER NEEDS AT THIS TIME. BERNADETTE LOPEZ IN [place], NAD NOTED, WILL CONTINUE TO MONITOR.
[2016-12-03 12:00] VITALS: BP 121/54
[2016-12-03 12:40] VITALS: Ht 182.9 cm; Wt 131.5 kg
[2016-12-03 16:00] VITALS: BP 134/60
--- NOTE | 2016-12-03 16:55 | NUR ---
PT UP TO CHAIR, DENIES ANY NEEDS AT THIS TIME. CALL LIGHT AND URINAL IN REACH, NAD NOTED, WILL CONTINUE TO MONITOR.
[2016-12-03 19:00] VITALS: BP 131/59
--- NOTE | 2016-12-04 00:15 | NUR ---
PT AWAKE, C/O INABILITY TO SLEEP. SALINE LOCK PATENT.
--- NOTE | 2016-12-04 03:11 | NUR ---
PT RESTING QUIETLY.
[2016-12-04 04:00] VITALS: BP 126/57
[2016-12-04 05:06] LABS: BASOPHILS 0.1 % (0-2); EOSINOPHILS 0 % (0-7); IMMATURE GRANULOCYTES 0.2 % (0-5); LYMPHOCYTES 7.6 % (15-50); MCH 29.5 pg (26.0-34.0); MCHC 33.3 g/dL (31.0-37.0); MCV 88.5 fL (80.0-100.0); MONOCYTES 2.2 % (2-11); NEUTROPHILS 89.9 % (40-80); RBC 4.07 10x6/uL (4.20-6.10); RDW 13.3 % (11.5-14.5)
[2016-12-04 05:17] LABS: PLATELET COUNT 234 10x3/uL (130-400); WBC 14.3 10x3/uL (4.8-10.8)
[2016-12-04 05:42] LABS: ALBUMIN 3.1 g/dL (3.4-5.0); ANION GAP 10.2 mmol/L (8-16); BILIRUBIN - TOTAL 0.7 mg/dL (0.2-1.3); CALCIUM 9.2 mg/dL (8.5-10.1); CARBON DIOXIDE 37.8 mmol/L (21.0-32.0); CREATININE - SERUM 1.8 mg/dL (0.6-1.3); PROTEIN - SERUM 7.6 g/dL (6.4-8.2)
--- NOTE | 2016-12-04 06:51 | NUR ---
PT STATES HE RESTED FOR ABOUT 2 HOURS. DENIES PAIN.
[2016-12-04 08:00] VITALS: BP 104/52
--- NOTE | 2016-12-04 08:23 | NUR ---
ASSESSMENT DONE. DENIES NEEDS.
--- NOTE | 2016-12-04 10:19 | NUR ---
RESTS WITH EYES CLOSED. RESP UL ON . CALL LIGHT IN REACH. WILL CONT. PLAN OF CARE.
[2016-12-04 12:00] VITALS: BP 125/58
--- NOTE | 2016-12-04 16:19 | NUR ---
DC GIVEN TO PT
--- NOTE | 2016-12-04 16:20 | NUR ---
DC HOME PER PERSONAL CAR
--- NOTE | 2016-12-05 12:12 | DS ---
PATIENT:ANUP REZA SR :41 MEDICAL RECORD: [id number] DISCHARGE SUMMARY ADMISSION DATE: 12/03/16 DISCHARGE DATE: 12/04/16 A 71-year-old male. DATE OF ADMISSION: 12/03/2016. DATE OF DISCHARGE: 12/04/2016. ADMISSION DIAGNOSES: Congestive heart failure, coronary artery disease, chronic obstructive pulmonary disease, shortness of breath. DISCHARGE DIAGNOSES: Congestive heart failure, coronary artery disease, chronic obstructive pulmonary disease, shortness of breath. HOSPITAL COURSE: The patient was admitted, cardiology consulted. He was diuresed with IV Lasix and had rapid improvement. He is back to his baseline. He is anxious to go home. He has been cleared by cardiology for discharge. He will follow up with his primary doctor, Dr. Herbert next week. We will continue his home medications with the exception of hydrocodone. He states every time he takes hydrocodone, he tends to go into CHF. We will hold this until he discusses this with his primary. Other medications per med rec. Please see chart for further details. DISPOSITION: The patient is discharged home in significantly improved condition. He already has oxygen at home. PHYSICAL EXAMINATION: VITAL SIGNS: On discharge temperature 98.2, blood pressure is 125/58, heart rate 72, respirations 18 nonlabored. O2 sats 94%. GENERAL: Alert, oriented, no acute distress. HEART: Regular rate and rhythm. LUNGS: Clear. ABDOMEN: Soft. EXTREMITIES: Present times 4. Edema significantly resolved. TRANSINT:[id number] Voice Confirmation ID: [id number] DOCUMENT ID: [id number] ITZ TOM DO at 1212 CC: [id number] DICTATION DATE: 12/04/16 1344 LOAD OUT SUPERVISOR: 12/05/16 0121 DIS IN 12/04/16 [facility] [address] [place] [address]
--- NOTE | 2016-12-06 15:02 | CN ---
PATIENT NAME:ANUP REZA SR MEDICAL RECORD: [id number] : 41 LOCATION:D.M2 D.2139 ADMIT DATE: 12/03/16 ACCOUNT: [id number] CONSULTING PHYSICIAN: DOM MALAGON MD REFERRING PHYSICIAN: NOVA DIA DO DATE OF CONSULTATION: 12/03/2016 DIAGNOSES: 1. Fluid overload. 2. Lower extremity edema. 3. Aortic valve replacement. 4. Coronary artery disease. 5. Status post coronary bypass graft surgery. 6. Chronic obstructive pulmonary disease. 7. Hypertension. 8. Paroxysmal atrial fibrillation. 9. Hyperlipidemia. HISTORY OF PRESENT ILLNESS: This is a gentleman known to us with multiple admissions for fluid overload, lower extremity edema and now presents with the same. He did have aortic stenosis; however, he had aortic valve replacement 3 months ago at [facility] and underwent 2 bypasses. This is the first episode of lower extremity edema and fluid overload he has had since then. He does not have any medical noncompliance. He does feel much better after the IV Lasix has been administered today times 3 doses. PHYSICAL EXAMINATION: GENERAL APPEARANCE: Well-nourished, well-developed, appears stated age. Level of distress, comfortable. PSYCHIATRIC: Mental status, alert, normal affect. Orientation, oriented to time, place and person. EYES: Lids and conjunctiva, noninjected. No discharge, no pallor. ENT: Lips, teeth, gums, normal dentition. Oropharynx, no cyanosis, no pallor. NECK: Carotid arteries, bilateral normal upstroke, no bruits, no thrills. JUGULAR VEINS: No jugular venous pressure or distention. CERVICAL LYMPH NODES: Nontender, nonenlarged. THYROID: Not enlarged. Nontender. No nodules. LUNGS: Respiratory effort, unlabored. CHEST: Normal curvature. No thoracic deformity. No chest wall tenderness. Percussion, resonant. Auscultation, clear. No wheezes, no rales, no rhonchi. CARDIOVASCULAR: Precordial exam, nondisplaced. No heaves or pericardial thrills. Rate and rhythm, regular. Heart sounds, normal S1, normal S2. No S3, no gallop, no rub. Systolic murmur, not heard. Diastolic murmur, not heard. EXTREMITIES: No cyanosis, no edema. Peripheral pulses, full and equal in all extremities, except as noted. No bruits appreciated. ABDOMEN: Soft, nondistended. Normal aorta. No bruit. Nontender. No masses. Liver, nontender, no hepatomegaly. Spleen, nontender, no splenomegaly. MUSCULOSKELETAL: No joint tenderness. No joint swelling. No erythema. NEUROLOGICAL: Normal gait, normal strength, normal tone. SKIN: Warm and dry. REVIEW OF SYSTEMS: The patient reports easy bruising but reports no swollen glands. The patient reports no fever, no night sweats, no significant weight gain, no significant weight loss. No significant exercise tolerance. The patient reports no dry eyes, no irritation, no vision change. Patient reports CONSULT REPORT [id number] ANUP REZA SR no difficulty hearing and no ear pain. Patient reports no frequent nose bleeds or nose and sinus problems. Patient reports on arm pain on exertion. No shortness of breath while lying down. No history of heart murmur. Patient reports no cough, no wheezing or coughing up blood. Patient reports no abdominal pain, no vomiting. Normal appetite. No diarrhea and not vomiting blood. No nausea and no constipation. Patient reports no incontinence. No difficulty urinating. No hematuria. No increased frequency. Patient reports no muscle aches. No weakness, no arthralgias, no back pain. No swelling of the extremities. Patient reports no abnormal mole, no jaundice, no rashes. Reports no loss of consciousness. No weakness and no numbness. No seizures, dizziness, or headaches. The patient reports no depression, no sleep disturbance, feeling safe in a relationship and no alcohol abuse. Patient reports on fatigue. Reports no runny nose or sinus pressure. No itching, no hives, and no frequent sneezing. OVERALL IMPRESSION: Fluid overload. At this time, there is no ongoing ischemia. He is stable from the standpoint of the valve replacement. Only IV Lasix as you are doing would be warranted. Continue the IV Lasix until fluid overload is resolved and then go back to p.o. Lasix. TRANSINT:[id number] Voice Confirmation ID: [id number] DOCUMENT ID: [id number] DOM MALAGON MD at 1502 CC: [id number] DICTATION DATE: 12/03/16 1545 STORE CLERK CHECKER: 12/03/16 8122 DIS IN 12/04/16 [facility] [address] [facility] [place] [address]
== END 2016-12-04 16:20 | disposition home or self-care (01) | DRG 292 ==
LOC: D.ER 22:06 → OBSVTIME 12-03 00:49 → D.M2 12-03 00:49
PROVIDERS: Emergency Medicine; ADMIT Family Medicine
DX: I50.9 Heart failure, unspecified (principal); E87.1 Hypo-osmolality and hyponatremia; I25.10 Atherosclerotic heart disease of native coronary artery without angina pectoris; J44.9 Chronic obstructive pulmonary disease, unspecified; E78.5 Hyperlipidemia, unspecified; K21.9 Gastro-esophageal reflux disease without esophagitis; I48.0 Paroxysmal atrial fibrillation; E87.6 Hypokalemia; Z79.01 Long term (current) use of anticoagulants; Z95.2 Presence of prosthetic heart valve; Z95.1 Presence of aortocoronary bypass graft

== ENCOUNTER → 2016-12-24 09:07 | Outpatient (CLI) | payer MEDICARE ==
[2016-12-03 12:40] VITALS: BMI 39.3
[~2016-12-24 09:07] MED LIST changes: +LIPITOR40 MG PO; +VALIUM 2 MG TAB2 MG PO
== END | disposition home or self-care (01) ==
LOC: D.CT 09:07
DX: M25.572 Pain in left ankle and joints of left foot (principal)

== ENCOUNTER 2016-12-26 11:00 | Inpatient (IN) | payer MEDICARE ==
[~2016-12-26] VITALS: Ht 182.9 cm; Wt 132.7 kg
[2016-12-26 12:14] LABS: APPEARANCE HAZY (CLEAR); BILIRUBIN NEGATIVE (NEGATIVE); COLOR DK YELLOW (YELLOW); GLUCOSE NEGATIVE (NEGATIVE); KETONE NEGATIVE (NEGATIVE); LEUKOCYTE ESTERASE NEGATIVE (NEGATIVE); NITRITE NEGATIVE (NEGATIVE); PROTEIN 2+ mg/dL (NEGATIVE); UROBILINOGEN NORMAL (NORMAL)
[2016-12-26 12:18] LABS: BACTERIA MODERATE /hpf (NONE SEEN); EPITHELIAL CELL CAST RARE /lpf (NONE SEEN); RED CELLS - URINE 0-5 /hpf (0-5); WHITE CELLS - URINE 0-5 /hpf (0-5)
[2016-12-26 12:45] LABS: HEMATOCRIT 45.7 % (42.0-54.0); HEMOGLOBIN 15.5 g/dL (13.5-17.5); MCH 30.5 pg (26.0-34.0); MCHC 33.9 g/dL (31.0-37.0); MEAN PLATELET VOLUME 11.3 fL (7.4-10.4); PLATELET COUNT 218 10x3/uL (130-400); RBC 5.08 10x6/uL (4.20-6.10); RDW 14.5 % (11.5-14.5); WBC 24.9 10x3/uL (4.8-10.8)
[2016-12-26 13:03] LABS: LYMPHOCYTES 9 % (15-50); MONOCYTES 3 % (2-11); NEUTROPHILS 83 % (40-80); PLATELET ESTIMATE NORMAL
[2016-12-26 13:04] LABS: ALBUMIN 3.2 g/dL (3.4-5.0); ALKALINE PHOSPHATASE 160 U/L (46-116); ALT (SGPT) 91 U/L (10-68); BILIRUBIN - TOTAL 2.73 mg/dL (0.2-1.3); CALC OSMOLALITY 282 mosm/kg (275-300); CALCIUM 8.8 mg/dL (8.5-10.1); CARBON DIOXIDE 31.9 mmol/L (21.0-32.0); CHLORIDE - SERUM 86 mmol/L (98-107); CREATININE - SERUM 2.3 mg/dL (0.6-1.3); GLUCOSE 265 mg/dL (74-106); PROTEIN - SERUM 7.3 g/dL (6.4-8.2); SODIUM 130 mmol/L (136-145); UREA NITROGEN 49 mg/dL (7-18); eGFR NON AFRICAN AMERICAN 30 mL/min (90-120)
[2016-12-26 14:07] LABS: CKMB 21.5 U/L (0.0-3.6)
[2016-12-26 14:11] LABS: CREATINE KINASE 12380 UL (21-232)
[2016-12-26 14:13] LABS: TROPONIN-I 0.102 ng/mL (0.000-0.060)
[2016-12-26 18:14] VITALS: BP 128/73; Ht 182.9 cm; Wt 132.7 kg
--- NOTE | 2016-12-26 19:15 | NUR ---
Received patient in bed resting. PIV in right hand is SL. PIV in left AC has NS with 20mEq K+ infusing @125ml/hr. States fell at home, has bruising on left eyelid and above left eye, and left arm. Has abrasion on right upper chest. Has gauze bandage on right arm, reported he has three skin tears under dressing. States he does not walk. Petit catheter in place draining pale red colored urine. Oxygen is on @3.5L/min. Drowsy, not answering questions, oriented to person only at this time.
[2016-12-26 20:00] VITALS: BP 101/65
--- NOTE | 2016-12-26 20:30 | NUR ---
Given Tylenol 650mg po PRN for complaints of back pain. Will monitor for effectiveness.
[2016-12-27] VITALS: BP 120/74
--- NOTE | 2016-12-27 01:41 | NUR ---
Patient found by Tech to have vomited. Called RN, emesis moderate amount of brown colored fluid, given bed bath by two Techs, paged [employer] and notified of same. Paged , orders received and given patient Zofran 4mg IV at this time. Will monitor.
[2016-12-27 04:00] VITALS: BP 139/42
[2016-12-27 05:01] LABS: BASOPHILS 0.1 % (0-2); EOSINOPHILS 0.1 % (0-7); HEMATOCRIT 41.9 % (42.0-54.0); HEMOGLOBIN 13.6 g/dL (13.5-17.5); IMMATURE GRANULOCYTES 0.7 % (0-5); LYMPHOCYTES 5.9 % (15-50); MCH 29.5 pg (26.0-34.0); MCHC 32.5 g/dL (31.0-37.0); MCV 90.9 fL (80.0-100.0); MEAN PLATELET VOLUME 12.1 fL (7.4-10.4); NEUTROPHILS 83.2 % (40-80); RBC 4.61 10x6/uL (4.20-6.10); RDW 14.7 % (11.5-14.5)
[2016-12-27 05:04] LABS: PLATELET COUNT 139 10x3/uL (130-400)
[2016-12-27 05:13] LABS: CALCIUM 7.9 mg/dL (8.5-10.1); CARBON DIOXIDE 32.2 mmol/L (21.0-32.0); CREATININE - SERUM 2.4 mg/dL (0.6-1.3); POTASSIUM - SERUM 3.2 mmol/L (3.5-5.1)
--- NOTE | 2016-12-27 05:46 | NUR ---
Called [employer], patient received Tylenol 650mg @0403 for generalized pain, Temp @0430 = 103.4, blankets removed, only has sheet and howpital gown on. Rechecked @0545 Temp = 103.3, both were axillary temps. Fan placed in room and patient only has hospital gown on now. Will recheck around 0630. HS aware of above and agrees to same. Will monitor. Cold cloth applied to forehead and neck.
--- NOTE | 2016-12-27 07:00 | NUR ---
PT REC'D FROM [facility] FROM [facility]. PT RESTING IN BED WITH EYES CLOSED. EASILY AROUSED. AAOX4. NO CURRENT COMPLAINTS OF PAIN. DRESSING TO R FOREARM CDI. BRUISING TO R SIDE OF CHEST, R ARM, SCABS TO BILAT KNEES, AND SCAB TO R ANKLE. REGULAR HEART RATE AND RHYTHM. LUNG SOUNDS CLEAR AND EQUAL BILAT. BOWEL SOUNDS HYPOACTIVE X4 QUADRANTS. CEBALLOS CATHETER DRAINING BROWN URINE WITH SEDIMENT TO GRAVITY. PIV'S TO L AC AND R HAND FREE OF REDNESS AND SWELLING. BED LOW, CALL LIGHT IN REACH, DENIES NEEDS. CPOC.
[2016-12-27 08:09] VITALS: BP 154/98
--- NOTE | 2016-12-27 09:05 | NUR ---
MORNING MEDS PASSED AT THIS TIME. PRN KCL ADMINISTERED PO PER ELECTROLYTE PROTOCOL. PT TOLERATED WELL. BED LOW, CALL LIGHT IN REACH, DENIES NEEDS. CPOC.
--- NOTE | 2016-12-27 10:30 | NUR ---
ENTERED PT ROOM TO APPLY TELEMETRY THAT HAD BEEN ORDERED ON ADMISSION. PT FOUND WITHOUT PULSES OR BREATH SOUNDS. UNABLE TO AUSCULTATE HEART RHYTHM. DR. DIA CALLED AND NOTIFIED AWAITING HIS ARRIVAL TO PRONOUNCE. PT HAS DNR ORDER ON CHART THAT WAS SIGNED AND FAMILY AND STAFF WERE AWARE OF. NO RESUCITATIVE MEASURES PROVIDED PER PT WISHES. PIV'S TO L AC AND R HAND DC'D WITH CATHETER INTACT. CEBALLOS CATHETER DC'D WITH BALLOON INTACT WELL. SHEETS CHANGED AND GOWN CHANGED. PARTIAL BED BATH GIVEN. OLD DRESSINGS REMOVED. ROOM STRAIGHTED UP. SPOKE WITH PT SON REGARDING HOME PREFERENCE. PT SON STATED, "I'M GETTING ALL THE FAMILY TOGETHER TO DECIDE." EXPLAINED TO SON TO CALL ME BACK WHEN A DECISION HAD BEEN MADE, BUT THERE WAS NO OCASIO. BED LOW AND LOCKED.
--- NOTE | 2016-12-27 11:41 | NUR ---
FAMILY INTERVENTION SPECIALIST CALLED AT THIS TIME.
--- NOTE | 2016-12-27 11:59 | NUR ---
NEELAM NOTIFIED. PT DOES NOT MEET DONATION CRITERIA.
--- NOTE | 2016-12-27 12:04 | NUR ---
[facility]OSS HOME NOTIFIED PER FAMILY PREFERENCE.
--- NOTE | 2016-12-27 12:37 | NUR ---
PT PICKED UP BY HOME.
== END 2016-12-27 12:38 | DRG 872 ==
LOC: D.ER 11:00 → D.MS 13:49
PROVIDERS: Emergency Medicine; ADMIT Family Medicine
PROC: 0T9B70Z Drainage of Bladder with Drainage Device, Via Natural or Artificial Opening (ICD-10-PCS; principal; 2016-12-26)
DX: A41.9 Sepsis, unspecified organism (principal); M62.82 Rhabdomyolysis; E87.1 Hypo-osmolality and hyponatremia; N17.9 Acute kidney failure, unspecified; J44.9 Chronic obstructive pulmonary disease, unspecified; I11.0 Hypertensive heart disease with heart failure; I50.9 Heart failure, unspecified; I48.91 Unspecified atrial fibrillation; I25.10 Atherosclerotic heart disease of native coronary artery without angina pectoris; Z95.1 Presence of aortocoronary bypass graft; K21.9 Gastro-esophageal reflux disease without esophagitis; E86.0 Dehydration; E87.6 Hypokalemia; Z66 Do not resuscitate; W19.XXXA Unspecified fall, initial encounter